=== PATIENT | female | born 1990 | race Caucasian/White ===

== ENCOUNTER 2016-07-16 18:13 | Emergency (ER) | payer OTHER ==
[~2016-07-16] VITALS: Ht 154.9 cm; Wt 59.9 kg
[2016-07-16 18:14] VITALS: BP 121/69
[2016-07-16] MEDS ORDERED: ACETAMINOPHEN ES 500 MG TABLET PO ONE (18:30)
[2016-07-16] MEDS ORDERED: IBUPROFEN 400 MG TABLET PO ONE (18:30)
[2016-07-16] MEDS ORDERED: IBUPROFEN 400 MG TABLET ONE (18:32)
[2016-07-16] MEDS ORDERED: ACETAMINOPHEN ES 500 MG TABLET ONE (18:32)
== END 2016-07-16 18:43 | disposition home or self-care (01) ==
LOC: ER 18:15
DX: R51 Headache (principal); Z88.2 Allergy status to sulfonamides; V49.40XA Driver injured in collision with unspecified motor vehicles in traffic accident, initial encounter; Y93.89 Activity, other specified; Y92.89 Other specified places as the place of occurrence of the external cause; Y99.9 Unspecified external cause status
CPT/HCPCS: 99283; A4606; Z7610

== ENCOUNTER 2016-07-28 17:43 | Emergency (ER) | payer OTHER ==
[~2016-07-28] VITALS: Ht 154.9 cm; Wt 59.0 kg
[2016-07-28 18:21] VITALS: BP 123/74
== END 2016-07-28 19:37 | disposition home or self-care (01) ==
LOC: ER 17:53
DX: B37.3 Candidiasis of vulva and vagina (principal); Z88.2 Allergy status to sulfonamides
CPT/HCPCS: 99283; A4606; Z7610

== ENCOUNTER 2016-07-30 16:52 | Emergency (ER) | payer OTHER ==
[~2016-07-30] VITALS: Ht 154.9 cm; Wt 59.0 kg
--- NOTE | 2016-07-30 17:03 | NUR ---
PT VAGINAL ITCHING, BURNING SENSATION X 5 DAYS DENIES DYSURIA, HEMATURIA, URGENCY, OR DISCHARGE. VSS. AWAITING MD ORDER
--- NOTE | 2016-07-30 17:28 | NUR ---
URINE SAMPLE COLLECTED SENT TO LAB
[2016-07-30 17:38] LABS: APPEARANCE,URINE Clear (CLEAR); BILIRUBIN,URINE Negative (NEGATIVE); BLOOD, URINE Negative Ery/uL (NEGATIVE); COLOR,URINE Yellow (YELLOW); KETONES,URINE Negative (NEGATIVE); LEUKOCYTE ESTERASE ,URINE Small (NEGATIVE); NITRITE, URINE Negative (NEGATIVE); PH,URINE 8.5 (5.0-8.0); PROTEIN,URINE Negative (NEGATIVE); UGLUCOSE Negative (NEGATIVE); UROBILINOGEN,URINE 0.2 EU/dL (0.2)
--- NOTE | 2016-07-30 17:45 | NUR ---
AT BEDSIDE FOR EVAL
[2016-07-30 18:05] LABS: ADD URINE CULTURE NO; BACTERIA,URINE Few /HPF (None Seen); RBC,URINE 0-2 /HPF (0-2); SQUAMOUS EPITHELIAL CELL,UR Few /HPF (None Seen)
[2016-07-30] MEDS ORDERED: LIDOCAINE 1% INJ 50 ML MDV IJ STA (18:29)
[2016-07-30] MEDS ORDERED: AZITHROMYCIN 250 MG TABLET PO STA (18:29)
[2016-07-30] MEDS ORDERED: CEFTRIAXONE 500 MG VIAL IM STA (18:29)
[2016-07-30] MEDS ORDERED: AZITHROMYCIN 250 MG TABLET ONE (18:32)
[2016-07-30] MEDS ORDERED: CEFTRIAXONE 500 MG VIAL ONE (18:32)
[2016-07-30] MEDS ORDERED: LIDOCAINE /MPF 1% VIAL 5 ML VIAL ONE (18:33)
--- NOTE | 2016-07-30 18:43 | NUR ---
Patient discharged to home in stable condition. Written and verbal after care instructions given. Patient verbalizes understanding of instruction.
[2016-07-30 19:39] VITALS: BP 118/83
[2016-08-03 04:18] LABS: *NEISSERIA GONORRHOEAE NAA Negative (Negative); CHLAMYDIA TRACHOMATIS NAA Negative (Negative)
== END 2016-07-30 19:39 | disposition home or self-care (01) ==
LOC: ER 16:54
DX: R10.2 Pelvic and perineal pain (principal); N39.0 Urinary tract infection, site not specified; Z88.2 Allergy status to sulfonamides
CPT/HCPCS: 81000-TC; 84703-TC; 87210-TC; 87491; 87591; A4606; J0696; J3490; Z7610

== ENCOUNTER 2017-05-23 01:19 | Emergency (ER) | payer MEDICAID ==
[~2017-05-23] VITALS: Ht 154.9 cm; Wt 59.9 kg
[2017-05-23 01:25] VITALS: BP 105/73
--- NOTE | 2017-05-23 01:35 | NUR ---
SETUP AT BEDSIDE FOR PELVIC EXAM BY .
--- NOTE | 2017-05-23 01:52 | NUR ---
AT BEDSIDE FOR PELVIS EXAM.
--- NOTE | 2017-05-23 02:00 | NUR ---
CULTURES OBTAINED AND SENT TO THE LAB.
[2017-05-23 02:19] LABS: APPEARANCE,URINE CLEAR (CLEAR); BILIRUBIN,URINE NEGATIVE (NEGATIVE); BLOOD, URINE TRACE-INTA Ery/uL (NEGATIVE); COLOR,URINE YELLOW (YELLOW); KETONES,URINE NEGATIVE (NEGATIVE); LEUKOCYTE ESTERASE ,URINE 1+ (NEGATIVE); NITRITE, URINE NEGATIVE (NEGATIVE); PH,URINE 6.5 (5.0-8.0); PROTEIN,URINE NEGATIVE (NEGATIVE); UGLUCOSE NEGATIVE (NEGATIVE); UROBILINOGEN,URINE 0.2 EU/dL (0.2)
[2017-05-23 02:25] LABS: BACTERIA,URINE Many /HPF (None Seen); SQUAMOUS EPITHELIAL CELL,UR Many /HPF (None Seen)
--- NOTE | 2017-05-23 03:28 | NUR ---
Patient discharged to home in stable condition. Written and verbal after care instructions given. Patient verbalizes understanding of instruction. Pt ambulatory with a steady gait. VSS, NAD noted on DC. Denies complaint on DC. Given Rx for macrobid on DC.
== END 2017-05-23 03:30 | disposition home or self-care (01) ==
LOC: ER 01:19
DX: N39.0 Urinary tract infection, site not specified (principal); Z88.2 Allergy status to sulfonamides
CPT/HCPCS: 81000-TC; 84703-TC; 87070-TC; 87086-TC; 87110-TC; 87210-TC; A4606; Z7610

== ENCOUNTER 2023-12-21 02:36 | Emergency (ER) | payer OTHER ==
[~2023-12-21] VITALS: Ht 154.9 cm; Wt 65.8 kg
[2023-12-21] MEDS ORDERED: TETRAcaine 5 ML BOTTLE ONE (02:50)
[2023-12-21 02:51] VITALS: BP 131/68; TEMP 98.1; O2SAT 98
[2023-12-21] MEDS ORDERED: ERYT3.5O9 EACHEYE (03:14)
== END 2023-12-21 03:19 | disposition home or self-care (01) ==
LOC: ER 02:39
DX: H04.123 Dry eye syndrome of bilateral lacrimal glands (principal); H57.89 Other specified disorders of eye and adnexa; Z88.2 Allergy status to sulfonamides